=== PATIENT | female | born 1980 | race American Indian/Alaskan Native ===

== ENCOUNTER 2022-04-02 09:23 | Emergency (ER) | payer SELFPAY ==
[2022-04-02 10:21] VITALS: BP 133/79
--- NOTE | 2022-04-02 13:35 | XRay Report ---
BILATERAL HANDS 2 VIEWS INDICATION: swelling. COMPARISON: None. IMPRESSION: Soft tissues appear unremarkable. No osseous abnormality or joint pathology is detected . Signer Name: Augie Christian Jr, MD Signed: 04/02/2022 1:30 PM Workstation Name: [id number]
--- NOTE | 2022-04-02 15:12 | Emergency Department Report ---
- General Chief complaint: Extremity Problem,Nontraumatic Stated complaint: HAND INFECTION Time Seen by Provider: 04/02/22 12:37 Source: patient Mode of arrival: Ambulatory Limitations: No Limitations - History of Present Illness Initial comments: 41-year-old black female with no past medical history presents to the emergency department for evaluation of "something moving under her skin". She states that for the past few years, she has had what she thinks is a fungal rash to her bilateral hands and feet. She states that she has been seen by several relief pilot and has had a biopsy with no diagnosis. She states that she keeps being told that they have not found anything. She states that when she uses anti-fungal cream, her hands "react" and the "thing" under her hand moves to the surface. She is requesting an xray of her hands so that she can get a look at what is moving around. MD complaint: other (moving feeling in hands and feet. ) -: year(s) (several) Severity scale (0 -10): 0 Associated symptoms: denies other symptoms Treatments Prior to Arrival: OTC topical medication - Related Data Allergies Allergy/AdvReac Type Severity Reaction Status Date / Time No Known Allergies Allergy Unverified 04/02/22 10:21 Abscess Boil HPI - HPI Chief Complaint: Extremity Problem,Nontraumatic Stated Complaint: HAND INFECTION Time Seen by Provider: 04/02/22 12:37 Allergies/Adverse Reactions: Allergies Allergy/AdvReac Type Severity Reaction Status Date / Time No Known Allergies Allergy Unverified 04/02/22 10:21 ED Review of Systems ROS: Stated complaint: HAND INFECTION Other details as noted in HPI Comment: All other systems reviewed and negative Constitutional: denies: chills, fever Respiratory: denies: shortness of breath Cardiovascular: denies: chest pain Gastrointestinal: denies: abdominal pain, nausea, vomiting Musculoskeletal: denies: back pain Skin: denies: rash, lesions Neurological: denies: headache ED Physical Exam - General Limitations: No Limitations General appearance: alert, in no apparent distress - Head Head exam: Present: atraumatic, normocephalic - Eye Eye exam: Present: normal appearance. Absent: conjunctival injection - ENT ENT exam: Present: normal exam - Neck Neck exam: Present: normal inspection. Absent: tenderness, lymphadenopathy - Respiratory Respiratory exam: Present: normal lung sounds bilaterally. Absent: respiratory distress, wheezes, rales, rhonchi, stridor, chest wall tenderness - Cardiovascular Cardiovascular Exam: Present: regular rate, normal heart sounds - GI/Abdominal GI/Abdominal exam: Present: soft, normal bowel sounds. Absent: distended, tenderness - Extremities Exam Extremities exam: Present: normal inspection, full ROM, normal capillary refill. Absent: tenderness, pedal edema, joint swelling, calf tenderness - Back Exam Back exam: Present: normal inspection. Absent: CVA tenderness (R), CVA tenderness (L) - Neurological Exam Neurological exam: Present: alert, oriented X3, CN II-XII intact - Psychiatric Psychiatric exam: Present: normal affect, normal mood - Skin Skin exam: Present: warm, dry, intact, normal color. Absent: rash, diaphoretic, erythema, urticaria, ecchymosis ED Course Vital Signs 04/02/22 10:17 Temperature 98.2 F Pulse Rate 84 Respiratory 18 Rate Blood Pressure 133/79 [Right] O2 Sat by Pulse 98 Oximetry ED Medical Decision Making - Radiology Data Radiology results: report reviewed, image reviewed Bilateral hand xray: IMPRESSION: Soft tissues appear unremarkable. No osseous abnormality or joint pathology is detected. - Medical Decision Making 41-year-old black female with no past medical history presents to the emergency department for evaluation of "something moving under her skin". She states that for the past few years, she has had what she thinks is a fungal rash to her bilateral hands and feet. She states that she has been seen by several relief pilot and has had a biopsy with no diagnosis. She states that she keeps being told that they have not found anything. She states that when she uses anti-fungal cream, her hands "react" and the "thing" under her hand moves to the surface. She is requesting an xray of her hands so that she can get a look at what is moving around. Physical exam unremarkable. Xray without any acute abnormalities noted. Patient was encouraged to consider paresthesia as cause of feeling in hands and feet and to follow up with neurovascular for further evaluation or management. She is advised to follow up in ed as needed. She verbalized understanding of and agreement with plan of care. Critical care attestation.: If time is entered above; I have spent that time in minutes in the direct care of this critically ill patient, excluding procedure time. ED Disposition Clinical Impression: Hand paresthesia Qualifiers: Laterality: bilateral Qualified Code(s): R20.2 - Paresthesia of skin Disposition: 01 HOME / SELF CARE / HOMELESS Is pt being admited?: No Does the pt Need Aspirin: No Condition: Stable Instructions: Paresthesia, [id number] Additional Instructions: Follow-up with primary care provider or vascular for further evaluation and management. Return to the emergency department as needed. Referrals: SHERINE DUEÑAS MD [Staff Physician] - 3-5 Days ALYSON MARTINEZ MD [Staff Physician] - 3-5 Days PAULINA PARMAR MD [Staff Physician] - 3-5 Days Time of Disposition: 17:10
== END 2022-04-02 18:08 | disposition home or self-care (01) ==
LOC: ED 09:23
DX: R20.2 Paresthesia of skin (principal)
CPT/HCPCS: 99283